=== PATIENT | male | born 1980 | race Caucasian/White ===

== ENCOUNTER 2022-10-08 11:25 | Emergency (ER) | payer MEDICAID ==
[~2022-10-08] VITALS: Ht 170.2 cm; Wt 86.0 kg
[2022-10-08 11:27] VITALS: BP 130/91
== END 2022-10-08 16:47 | disposition left against medical advice (07) ==
LOC: ER 11:25
DX: R06.02 Shortness of breath (principal); Z53.21 Procedure and treatment not carried out due to patient leaving prior to being seen by health care provider
CPT/HCPCS: 99281